=== PATIENT | female | born 1960 | race Caucasian/White ===

== ENCOUNTER 2017-04-08 03:16 | Emergency (ER) | payer OTHER ==
[~2017-04-08] VITALS: Ht 157.5 cm; Wt 87.5 kg
--- NOTE | ~2017-04-08 | EKG ---
[place] [address] [facility] [place] [address] ELECTROCARDIOGRAM REPORT Name: COLEMAN HICKEY Room #: [facility]#: [id number] Admission: 04/08/17 Attend Phys: Discharge: 04/08/17 Date of : 64 Report #: [id number] THIS REPORT FOR: //name// [facility] ED Test Date: 2017-04-08 Test Time: 03:22:17 Pat Name: COLEMAN HICKEY Department: Room: Gender: F Lean Consultant: GONZALES : 1960 Requested By: Lloyd Arce Order Number: [id number] MD: Stuart Kelley Measurements Intervals Dickson Rate: 91 P: 69 TN: 171 QRS: 23 QRSD: 87 T: 68 QT: 375 QTc: 462 Interpretive Statements Sinus rhythm No significant abnormality No previous ECG available for comparison Electronically Signed On 04-08-2017 8:27:45 PHOTO PRODUCER by Stuart Kelley [email or web address] <ELECTRONICALLY SIGNED> By: Stuart Kelley MD, [facility] 04/08/17 [id number] [id number] Stuart Kelley MD, FACC /EPI
[~2017-04-08 03:16] MED LIST: ADVAIR 250-501 EACH; AMLODIPINE BESY10 MG; CIPROFLOXACIN500 M1 PO; IBUPROFEN 600600 M1 PO; K-DUR10 ME1; LISINOPRIL40 MG; NORCO 5-325 TA1 EACH PO; PREDNISONE 20 M20 M1 PO; PROAIR HFA8.5 GM; VENTOLIN HFA INH8 GM IH; ZOFRAN ODT4 MG PO
[2017-04-08 04:03] LABS: BASOPHILS 0.6 % (0.0-2.0); EOSINOPHILS 5.6 % (0.0-3.0); HEMATOCRIT 42.1 % (37.0-47.0); HEMOGLOBIN 14.1 gm/dL (12.0-15.0); LYMPHOCYTES 24.8 % (24.0-44.0); MCH 27.9 pg (26.0-34.0); MCHC 33.5 g/dL (28.0-37.0); MCV 83.4 fL (80.0-100.0); MONOCYTES 5.7 % (1.0-8.0); PLATELET COUNT 274 thou/uL (150-400); POLYS 63.3 % (36.0-66.0); RBC 5.06 mil/uL (4.20-5.00); RDW 14.7 % (10.5-14.5); WBC 11.1 thou/uL (4.0-11.0)
[2017-04-08 04:12] LABS: ANION GAP 10 mmol/L (7-16); BUN 24 mg/dL (7-18); CALCIUM 9.5 mg/dL (8.5-10.1); CHLORIDE 104 mmol/L (98-107); CO2 27 mmol/L (21-32); CREATININE 0.7 mg/dL (0.6-1.0); GLUCOSE 114 mg/dL (74-106); POTASSIUM 3.4 mmol/L (3.5-5.1); SODIUM 141 mmol/L (136-145)
[2017-04-08] MEDS ORDERED: CHLORTHALIDONE25 MG PO (04:14)
[2017-04-08 04:21] LABS: MAGNESIUM 1.8 mg/dL (1.8-2.4); SGOT 23 U/L (15-37); SGPT 21 U/L (30-65); TOTAL BILIRUBIN 0.3 mg/dL (<0.1-1.0); TOTAL PROTEIN 7.4 g/dL (6.4-8.2); TROPONIN-I < 0.04 ng/mL (<0.06)
[2017-04-08] MEDS ORDERED: PREDNISONE 20 M20 MG PO (04:22)
[2017-04-08] MEDS ORDERED: VENTOLIN HFA 1818 GM INH (04:22)
== END 2017-04-08 05:00 | disposition home or self-care (01) ==
LOC: ER 03:16
PROVIDERS: Emergency Medicine
DX: J45.901 Unspecified asthma with (acute) exacerbation (principal); R07.89 Other chest pain; Z88.1 Allergy status to other antibiotic agents; Z88.0 Allergy status to penicillin